=== PATIENT | male | born 1965 | race Two or more races ===

== ENCOUNTER 2019-03-10 04:11 | Emergency (ER) | payer MEDICAID ==
[~2019-03-10] VITALS: Ht 179.1 cm; Wt 83.2 kg
[~2019-03-10 04:11] MED LIST: ASPI-1265 PO; HYDR-3972 PO
[2019-03-10] MEDS ORDERED: normal saline 1000ML IV soln IV ONE (04:50)
[2019-03-10] MEDS ORDERED: vancomycin/NS 1 GM ADD-VANTAGE 250 ML IV ONE (04:50)
[2019-03-10] MEDS ORDERED: piperacillin/tazo 3.375gm/50ml 50 ML IV ONE (04:50)
--- NOTE | 2019-03-10 06:17 | NUR ---
1ST SET OF BLOOD CULTURES DENIED AND ABX ALREADY STARTED. TOY STUFFER STATES "IT IS OK TO DRAW BLOOD CULTURES AFTER ABX HAS STARTED". WILL GO OVER WITH MD AND PASS ON IN REPORT
[2019-03-10 07:23] VITALS: BP 132/89
--- NOTE | 2019-03-10 07:26 | NUR ---
S/W ABOUT THE REMAINING FLUIDS, PT HAS RECEIVED 1L NS AND THE 1ST ABT. STATED DUE TO FALSE LOW BP WHEN PT FIRST CAME IN THAT WE CAN WAIT UNTIL LABS ARE BACK BEFORE PROCEDING WITH SECOND ABT AND REMAINING 2L OF FLUIDS.
[2019-03-10 07:28] LABS: BASOPHILS # (AUTO) 0.1 X10'3 (0-0.2); BASOPHILS % (AUTO) 0.7 % (0-1); EOSINOPHILS # (AUTO) 0.1 X10'3 (0-0.9); EOSINOPHILS % (AUTO) 1.5 % (0-6); HEMOGLOBIN 13.1 g/dl (14.0-17.9); LYMPHOCYTES % (AUTO) 13.8 % (21-51); MEAN CORPUSCULAR HEMOGLOBIN 31.6 PG (27.0-31.0); MEAN CORPUSCULAR HGB CONC 33.6 g/dL (33.0-36.5); MEAN CORPUSCULAR VOLUME 94.1 FL (78-98); MONOCYTES # (AUTO) 0.7 X10'3 (0-0.9); MONOCYTES % (AUTO) 8.7 % (2-12); NEUTROPHILS # (AUTO) 5.6 X10'3 (1.8-7.7); NEUTROPHILS % (AUTO) 75.3 % (42-75); PLATELET COUNT 268 X10'3 (140-440); RED BLOOD COUNT 4.15 X10'6 (4.70-6.10); WHITE BLOOD COUNT 7.5 X10'3 (4.5-11.0)
[2019-03-10 07:47] LABS: PARTIAL THROMBOPLASTIN TIME 29 SECONDS (22-32)
[2019-03-10 08:10] LABS: ALANINE AMINOTRANSFERASE 25 U/L (12-78); ALBUMIN/GLOBULIN RATIO 0.8 (1.1-1.5); ALKALINE PHOSPHATASE 133 IU/L (46-116); ANION GAP 9 (8-16); ASPARTATE AMINO TRANSFERASE 24 U/L (10-37); BILIRUBIN,TOTAL 0.5 MG/DL (0.1-1.0); BLOOD UREA NITROGEN 17 MG/DL (7-18); BUN/CREATININE RATIO 15.6 (5.4-32.0); CALCIUM 8.2 MG/DL (8.5-10.1); CHLORIDE 107 MMOL/L (99-107); CREATININE 1.09 MG/DL (0.60-1.10); GLUCOSE 94 MG/DL (70-104); MAGNESIUM 2.2 MG/DL (1.5-2.4); POTASSIUM 3.7 MMOL/L (3.5-5.1); SODIUM 140 MMOL/L (135-145); TOTAL CARBON DIOXIDE 23.9 MMOL/L (24-32); TOTAL PROTEIN 6.6 G/DL (6.4-8.2); eGFR 71 ML/MIN
[2019-03-10] MEDS ORDERED: CEPH250T PO (08:19)
[2019-03-10] MEDS ORDERED: CLIN150C8 PO (08:19)
== END 2019-03-10 09:03 | disposition home or self-care (01) ==
LOC: ER 04:11
DX: S91.104A Unspecified open wound of right lesser toe(s) without damage to nail, initial encounter (principal); L03.115 Cellulitis of right lower limb; R79.1 Abnormal coagulation profile; Z91.030 Bee allergy status; Z91.09 Other allergy status, other than to drugs and biological substances; Z79.82 Long term (current) use of aspirin; Z79.899 Other long term (current) drug therapy; Z86.19 Personal history of other infectious and parasitic diseases; X58.XXXA Exposure to other specified factors, initial encounter; Y93.89 Activity, other specified; Y92.89 Other specified places as the place of occurrence of the external cause; Y99.8 Other external cause status
CPT/HCPCS: 36415; 71045; 80053; 83605; 83735; 84145; 85025; 85610; 85730; 87040; 93005; 96365; 99284; J2543

== ENCOUNTER 2019-07-12 16:15 | Emergency (ER) | payer MEDICAID ==
[~2019-07-12] VITALS: Ht 177.8 cm; Wt 88.6 kg
[~2019-07-12 16:15] MED LIST changes: +CLIN150C8 PO
--- NOTE | 2019-07-12 16:46 | NUR ---
PATIENT WITH ABRASION TO LEFT ELBOW AND SMALL 3 MM SCAB TO LEFT POSTERIOR UPPER ARM ABOUT 3 MM SCAB TO LEFT UPPER BACK WITH SLIGHT SWELLING, PA AWARE
[2019-07-12 16:55] VITALS: BP 125/67
== END 2019-07-12 16:55 ==
LOC: ER 16:16
DX: S40.212A Abrasion of left shoulder, initial encounter (principal); S20.412A Abrasion of left back wall of thorax, initial encounter; T75.4XXA Electrocution, initial encounter; F17.200 Nicotine dependence, unspecified, uncomplicated; F12.90 Cannabis use, unspecified, uncomplicated; Z91.030 Bee allergy status; Z79.82 Long term (current) use of aspirin; Z79.899 Other long term (current) drug therapy; Z91.09 Other allergy status, other than to drugs and biological substances; Y08.89XA Assault by other specified means, initial encounter; Y93.89 Activity, other specified; Y92.89 Other specified places as the place of occurrence of the external cause; Y99.8 Other external cause status
CPT/HCPCS: 99284

== ENCOUNTER 2024-05-01 20:59 | Emergency (ER) | payer MEDICAID ==
[~2024-05-01] VITALS: Ht 177.8 cm; Wt 75.9 kg
[~2024-05-01 20:59] MED LIST changes: +CLIN-214 PO; -CLIN150C8 PO
[2024-05-01 21:01] VITALS: TEMP 97.7
[2024-05-01 22:22] VITALS: BP 133/96; PULSE 96; RESP 18; O2SAT 96
== END 2024-05-01 22:29 | disposition home or self-care (01) ==
LOC: ER 20:59
DX: R14.1 Gas pain (principal); F12.90 Cannabis use, unspecified, uncomplicated; Z91.030 Bee allergy status; Z79.82 Long term (current) use of aspirin; Z79.2 Long term (current) use of antibiotics
CPT/HCPCS: 71046; 99283